=== PATIENT | female | born 1975 | race Hispanic/Latino ===

== ENCOUNTER 2023-09-10 11:14 | Emergency (ER) | payer BC ==
[~2023-09-10] VITALS: Ht 162.6 cm; Wt 76.7 kg
[2023-09-10 12:01] LABS: BASOPHILS # (AUTO) 0.03 K/uL (0.00-0.20); BASOPHILS % (AUTO) 0.3 % (0.0-5.0); EOSINOPHILS # (AUTO) 0.05 K/uL (0.00-0.70); EOSINOPHILS % (AUTO) 0.4 % (0.0-8.0); HEMATOCRIT 40.2 % (36-48); IMMATURE GRANULOCYTE ABSOLUTE 0.04 K/uL (0-1); LYMPHOCYTES % (AUTO) 16.5 % (21.0-51.0); MEAN CORPUSCULAR HEMOGLOBIN 29.3 pg (27.0-33.0); MEAN CORPUSCULAR HGB CONC 33.8 g/dL (32.0-36.0); MEAN CORPUSCULAR VOLUME 86.6 fL (79-99); MONOCYTES # (AUTO) 0.8 K/uL (0.1-1.0); MONOCYTES % (AUTO) 6.6 % (3.0-13.0); NEUTROPHILS # (AUTO) 9.1 K/uL (1.8-7.7); NEUTROPHILS % (AUTO) 75.9 % (40.0-77.0); PLATELET COUNT (AUTO) 253 K/uL (130-400); RED BLOOD CELL COUNT(AUTO) 4.64 MIL/uL (4.00-5.50); RED CELL DISTRIBUTION WIDTH 13.9 % (11.0-15.5)
[2023-09-10 12:23] LABS: CREATININE 0.8 mg/dL (0.5-1.0); POTASSIUM 3.4 mmol/L (3.5-5.1)
[2023-09-10 12:25] LABS: APPEARANCE,URINE CLEAR (CLEAR); BILIRUBIN,URINE NEGATIVE (NEGATIVE); COLOR,URINE LIGHT-YELLOW (YELLOW); GLUCOSE, URINE (UA) NEGATIVE (NEGATIVE); KETONES,URINE NEGATIVE (NEGATIVE); LEUKOCYTE ESTERASE ,URINE NEGATIVE Leu/uL (NEGATIVE); NITRATE,URINE NEGATIVE (NEGATIVE); OCCULT BLOOD,URINE NEGATIVE (NEGATIVE); PH,URINE 6.5 (5.0-8.0); PROTEIN,URINE NEGATIVE (NEGATIVE); UROBILINOGEN,URINE 0.2 mg/dL (0.2-1.0)
[2023-09-10 12:26] LABS: ADD UA MICROSCOPIC NO
[2023-09-10 12:27] LABS: ALBUMIN 3.6 g/dL (3.5-5.0); BILIRUBIN,TOTAL 0.5 mg/dL (0.2-1.0); TOTAL PROTEIN, SERUM 8.1 g/dL (6.0-8.3)
[2023-09-10] MEDS: LEVOFLOXACIN 500 MG/D5W 100 ML 100 ML IV SCH (15:57)
[2023-09-10] MEDS: 0.9%NACL 1000ML 1,000 ML IV ONE ×2 (15:57→16:03)
[2023-09-10] MEDS: LEVOFLOXACIN 500 MG/D5W 100 ML 100 ML ONE (16:03)
[2023-09-10] MEDS: KETOROLAC 30MG VIAL (30MG/ML) IVP ONE (16:40)
[2023-09-10] MEDS: METRONIDAZOLE 500MG/100ML BAG 100 ML IVPB SCH (16:40)
[2023-09-10] MEDS: METRONIDAZOLE 500MG/100ML BAG 100 ML ONE (16:44)
[2023-09-10 19:59] VITALS: BP 103/61; PULSE 84; RESP 18; O2SAT 98
[2023-09-10] MEDS ORDERED: METR-172 PO (20:39)
[2023-09-10] MEDS ORDERED: CIPR-278 PO (20:39)
[2023-09-10] MEDS ORDERED: ONDA-243 PO (20:39)
[2023-09-10] MEDS ORDERED: HYDR-4060 PO (20:39)
== END 2023-09-10 20:51 | disposition home or self-care (01) ==
LOC: EDH 11:14
DX: K57.92 Diverticulitis of intestine, part unspecified, without perforation or abscess without bleeding (principal); Z87.442 Personal history of urinary calculi; Z86.018 Personal history of other benign neoplasm
CPT/HCPCS: 99284; 96365; 74150; 96375; 80053; 83690; 85025; 81003; 36415; J1956; J7030; J1885; J3490